=== PATIENT | male | born 1985 | race Caucasian/White ===

== ENCOUNTER 2018-01-07 11:03 | Emergency (ER) | payer SELFPAY ==
[~2018-01-07] VITALS: Ht 182.9 cm; Wt 137.0 kg
[2018-01-07 11:22] VITALS: BP 156/96
--- NOTE | 2018-01-07 11:58 | PHYS DOC ---
Past History Past Medical History: Hypertension Past Surgical History: No Surgical History Alcohol Use: Occasionally Drug Use: None Adult General Chief Complaint Chief Complaint: LACERATION/AVULSION HPI HPI Patient is a 32 year old male who presents with complaining of a laceration to forehead. Patient states he was at work and using a head tool to put in a ground sana but loss his balance and slipped and hit his head and developed a laceration in for headache above right eyebrow. Patient denies loss of consciousness and other injuries and change of vision. Patient is up-to-date with tetanus immunization. Review of Systems Review of Systems Constitutional: Denies fever or chills [] Eyes: Denies change in visual acuity, redness, or eye pain [] HENT: Denies nasal congestion or sore throat [] Respiratory: Denies cough or shortness of breath [] Cardiovascular: No additional information not addressed in HPI [] GI: Denies abdominal pain, nausea, vomiting, bloody stools or diarrhea [] : Denies dysuria or hematuria [] Musculoskeletal: Denies back pain or joint pain [] Integument: Denies rash or skin lesions [] Neurologic: Denies headache, focal weakness or sensory changes [] Endocrine: Denies polyuria or polydipsia [] All other systems were reviewed and found to be within normal limits, except as documented in this note. Allergies Allergies Allergies Coded Allergies Type Severity Reaction Last Updated Verified amoxicillin Allergy Intermediate 01/07/18 Yes Physical Exam Physical Exam Constitutional: Well developed, well nourished, no acute distress, non-toxic appearance. [] HENT: Normocephalic, 2 cm irregular laceration above right eyebrow with involving eyebrow without active bleeding Eyes: PERRLA, EOMI, conjunctiva normal, no discharge. [] Neck: Normal range of motion, no tenderness, supple, no stridor. [] Cardiovascular:Heart rate regular rhythm, no murmur [] Lungs & Thorax: Bilateral breath sounds clear to auscultation [] Skin: Warm, dry, no erythema, no rash. [] Back: No tenderness, no CVA tenderness. [] Extremities: No tenderness, no cyanosis, no clubbing, ROM intact, no edema. [] Neurologic: Alert and oriented X 3, normal motor function, normal sensory function, no focal deficits noted. [] Psychologic: Affect normal, judgement normal, mood normal. [] Current Patient Data Vital Signs Vital Signs Date Time Temp Pulse Resp B/P (MAP) Pulse Ox O2 Delivery O2 Flow Rate FiO2 01/07/18 11:22 98.6 96 18 96 Room Air EKG EKG [] Radiology/Procedures Radiology/Procedures [] Course & Med Decision Making Course & Med Decision Making discharge: I've spoken with the patient and/or caregivers. I've explained the patient's condition, diagnosis and treatment plan based on information available to me at this time. I've answered the patient's and/or caregivers questions and addressed any concerns. The patient and/or caregivers have a good understanding the patient's diagnosis, condition and treatment plan as can be expected at this point. Vital signs have been stabilized. The patient's condition is stable for discharge from the emergency department. The patient will pursue further outpatient evaluation with her primary care provider or other designated consulting physician as outlined in the discharge instructions. Patient and/or caregivers are agreeable to this plan of care and follow-up instructions have been explained in detail. The patient and/or caregivers have received these instructions in written format and expressed understanding of these discharge instructions. The patient and her caregivers are aware that if any significant change in condition or worsening of symptoms should prompt him to immediately return to this of the closest emergency department. If an emergent department is not readily available I would encourage him to call 911. [place] Disclaimer Dragon Disclaimer This electronic medical record was generated, in whole or in part, using a voice recognition dictation system. Laceration Repair Lac Repair Indication: Forehead laceration Procedure: The patient was placed in the appropriate position and after cleaning 2 cm irregular laceration of forehead and eyebrow was repaired with Dermabond and Steri-Strip. Total repaired wound length: 2 cm Other Items: None The patient tolerated the procedure well. Complications: None. Departure Departure: Impression: Primary Impression: Laceration of right eyebrow Disposition: HOME, SELF-CARE (at 1156) Condition: IMPROVED Referrals: TOYIN ATKINS (PCP) Patient Instructions: Facial Laceration, Skin Adhesive Strip Removal, Stitches , [place] or Skin Adhesive Strips, [id number], Tissue Adhesive Wound Care Additional Instructions: Keep wound clean and dry DEYANIRA BOB MD Jan 07, 2018 11:58
== END 2018-01-07 12:13 | disposition home or self-care (01) ==
LOC: ER 11:03
DX: S01.111A Laceration without foreign body of right eyelid and periocular area, initial encounter (principal); I10 Essential (primary) hypertension; Z88.1 Allergy status to other antibiotic agents; W22.8XXA Striking against or struck by other objects, initial encounter; Y93.89 Activity, other specified; Y92.89 Other specified places as the place of occurrence of the external cause; Y99.8 Other external cause status
CPT/HCPCS: 12011; 99283